=== PATIENT | female | born 1985 | race Caucasian/White ===

== ENCOUNTER 2020-12-02 15:45 | Emergency (ER) | payer MEDICAID ==
[~2020-12-02] VITALS: Ht 157.5 cm; Wt 62.1 kg
[2020-12-02 15:55] VITALS: BP 151/91
--- NOTE | 2020-12-02 15:58 | NUR ---
AMBULATED TO BED 1
--- NOTE | 2020-12-02 16:11 | NUR ---
35 Y/O FEMALE COMPLAINS OF RIGHT FLANK PAIN X 2 WEEKS. PT VERBALIZED FLANK PAIN 6/10, LOCAL, INTERMITTENT, DULL, ACCOMPANIED BY CHILLS, YELLOW VAGINAL DISCHARGE WITH FOUL ODOR, FREQUENT URINATION, AND SORE THROAT. DENIES PRESENCE OF BLOOD IN URINE, DISCOMFORT WHEN VOIDING. PT ALSO VERBALIZED ABDOMINAL PAIN X 2 WEEKS; 6/10, INTERMITTENT, PRESSURE, LOCAL. VERBALIZED GIVING X 3 MO AGO VIA AND PAIN ORIGINATING FROM SURGERY SITE. DENIES NAUSEA/VOMITING/DIARRHEA. NORMOACTIVE BOWEL SOUNDS HEARD THROUGHOUT. AO4, BREATHING EVEN AND UNLABORED, SKIN WARM AND DRY. BED IN LOWEST POSITION, LOCKED, X1 SIDERAIL UP. PMH - ANEMIA NKA
[2020-12-02] MEDS ORDERED: OMEP40EC24 PO (17:00)
[2020-12-02] MEDS ORDERED: FLUC150T PO (17:00)
[2020-12-02] MEDS ORDERED: IBUP-2213 PO (17:00)
[2020-12-02 18:24] VITALS: BP 151/91
--- NOTE | 2020-12-02 18:25 | NUR ---
Patient discharged with v/s stable. Written and verbal after care instructions ABOUT PHARYNGITIS, GERD, AND VAGINITIS given and explained. Patient alert, oriented and verbalized understanding of instructions. Ambulatory with steady gait. All questions addressed prior to discharge. ID band removed. Patient advised to follow up with PMD. Rx of FLUCONAZOLE, IBUPROFEN, AND OMEPRAZOLE given. Patient educated on indication of medication including possible reaction and side effects. Opportunity to ask questions provided and answered.
== END 2020-12-02 18:25 | disposition home or self-care (01) ==
LOC: MED 15:45
DX: N93.9 Abnormal uterine and vaginal bleeding, unspecified (principal); J02.9 Acute pharyngitis, unspecified; Z90.49 Acquired absence of other specified parts of digestive tract
CPT/HCPCS: 81002; 81025; 99283

== ENCOUNTER 2021-02-05 11:05 | Emergency (ER) | payer MEDICAID, SELFPAY ==
[~2021-02-05] VITALS: Ht 152.4 cm; Wt 60.3 kg
[~2021-02-05 11:05] MED LIST: FLUC150T PO; IBUP-2213 PO; OMEP40EC24 PO
[2021-02-05 11:09] VITALS: BP 133/95
--- NOTE | 2021-02-05 11:18 | NUR ---
Patient ambulated to bed 2 with a steady gait.
--- NOTE | 2021-02-05 11:19 | NUR ---
Patient ambulated to restroom with a steady gait to collect urine specimen.
[2021-02-05] MEDS ORDERED: NACL 0.9% 1,000 ML IV ONE (11:25)
[2021-02-05] MEDS ORDERED: KETOROLAC 30 MG/ML VIAL IVP ONE (11:25)
--- NOTE | 2021-02-05 11:32 | NUR ---
35 Y/O FEMALE C/O COUGH, SOB, RUNNING NOSE, SORE THROAT, BODY ACHES, SUBJECTIVE FEVER, CHILLS, [place], AND LOSS OF SMELL/TASTE X3 DAYS. SPO2 100%. PT WAS HOSPITALIZED 10/17 FOR COVID, WAS 7 MONTHS . PT RATES PAIN 10/10 AND TOOK IBUPROFEN BEFORE COMING IN. PMH:SANJANA GOODEN
--- NOTE | 2021-02-05 11:38 | NUR ---
Novel covid swab collected, walked to lab and handed to CPT. Jessika
[2021-02-05] MEDS ORDERED: PRED20TA5 PO (12:09)
[2021-02-05] MEDS ORDERED: IBUP-2213 PO (12:09)
[2021-02-05 12:18] VITALS: BP 133/95
--- NOTE | 2021-02-05 12:18 | NUR ---
Patient discharged with v/s stable. Written and verbal after care instructions given and explained. Patient alert, oriented and verbalized understanding of instructions. Ambulatory with steady gait. All questions addressed prior to discharge. ID band removed. Patient advised to follow up with PMD. Rx of PREDNISONE, IBUPROFEN given. Patient educated on indication of medication including possible reaction and side effects. Opportunity to ask questions provided and answered.
--- NOTE | 2021-02-06 23:47 | NUR ---
LATE ENTRY- NORMAL SALINE 0.9% DISCONTINUED AT 1310
== END 2021-02-05 12:18 | disposition home or self-care (01) ==
LOC: MED 11:05
DX: J06.9 Acute upper respiratory infection, unspecified (principal); Z20.822 Contact with and (suspected) exposure to COVID-19; Z90.49 Acquired absence of other specified parts of digestive tract; Z98.890 Other specified postprocedural states; Z79.899 Other long term (current) drug therapy
CPT/HCPCS: 81002; 81025; 96361; 96374; 99284; J1885; J7030; U0003

== ENCOUNTER 2021-04-01 12:38 | Emergency (ER) | payer MEDICAID, SELFPAY ==
[~2021-04-01] VITALS: Ht 152.4 cm; Wt 63.0 kg
[~2021-04-01 12:38] MED LIST changes: +PRED20TA5 PO
[2021-04-01 12:55] VITALS: BP 127/77
--- NOTE | 2021-04-01 13:49 | NUR ---
PT AMBULATED TO BED 9
--- NOTE | 2021-04-01 13:50 | NUR ---
Patient to restroom for urine sample.
--- NOTE | 2021-04-01 13:55 | NUR ---
35 y/o F BIB self from home with c/c abdominal pain and bloating, constipation x 3 days. Patient reports last bowel movement 3 days ago; denies fever/chills, nausea, vomiting, chest pain, dizziness, back pain. Patient states she took Ibuprofen yesterday with minor relief. Pt placed into a gown, urine sample collected. VSS; respirations even/unlabored. Bed locked in lowest position, side rails x 1, call light in reach. PMH: CSESTION- JUL 2020, CHOLECYSTECTOMY MEDS: NONE NKA
--- NOTE | 2021-04-01 13:57 | NUR ---
Patient back onto bed 09 with steady/even gait.
--- NOTE | 2021-04-01 14:00 | NUR ---
DR MORA AT BEDSIDE EVALUATING PT
[2021-04-01] MEDS ORDERED: MAGN1.7529 PO (14:23)
[2021-04-01] MEDS ORDERED: KETOROLAC 30 MG/ML VIAL ONE (14:28)
[2021-04-01] MEDS ORDERED: KETOROLAC 30 MG/ML VIAL IM ONE (14:30)
[2021-04-01 14:31] VITALS: BP 127/77
--- NOTE | 2021-04-01 14:31 | NUR ---
Patient discharged with v/s stable. Written and verbal after care instructions given and explained. Patient alert, oriented and verbalized understanding of instructions. Ambulatory with steady gait. All questions addressed prior to discharge. ID band removed. Patient advised to follow up with PMD. Rx of Magnesium Citrate given. Patient educated on indication of medication including possible reaction and side effects. Opportunity to ask questions provided and answered.
--- NOTE | 2021-04-01 14:33 | NUR ---
Patient states positive relief after Toradol IM shot; reports pain 5/10. Advised to monitor for 5 minutse before discharged home.
--- NOTE | 2021-04-01 14:38 | NUR ---
Patient states pain 0/10 at this time.
== END 2021-04-01 14:31 | disposition home or self-care (01) ==
LOC: MED 12:38
DX: K59.00 Constipation, unspecified (principal); Z79.899 Other long term (current) drug therapy
CPT/HCPCS: 81002; 81025; 96372; 99283; J1885

== ENCOUNTER 2021-06-20 07:31 | Emergency (ER) | payer MEDICAID ==
[~2021-06-20] VITALS: Ht 152.4 cm; Wt 61.2 kg
[~2021-06-20 07:31] MED LIST changes: +MAGN1.7529 PO
[2021-06-20 07:33] VITALS: BP 134/104
--- NOTE | 2021-06-20 07:37 | NUR ---
PT AMBULATED TO ER BED 12.
--- NOTE | 2021-06-20 07:45 | NUR ---
35 Y/O F BIB SELF FROM HOME, PATIENT PRESENTS TO ED WITH ABD PAIN THAT RADIATES TO L LOWER BACK AND VAGINAL PAIN. PT STATES PAIN STARTED LAST NIGHT WITH YELLOW DISCHARGE, NO BLEEDING. UPON ASSESSMENT, CVA TENDERNESS ON R SIDE, NONE L SIDE. DENIES N/V/D; SKIN IS PINK/WARM/DRY; AAOX4 WITH EVEN AND STEADY GAIT; LUNGS CLEAR BL; HR EVEN AND REGULAR; PT DENIES ANY FEVER, CP, SOB, OR COUGH AT THIS TIME; PATIENT STATES PAIN OF 8/10 AT THIS TIME; VSS; PATIENT POSITIONED FOR COMFORT; HOB ELEVATED; BEDRAILS UP X2; BED DOWN. ER MD MADE AWARE OF PT STATUS. PMH: DENIES NKA MED: DENIES
--- NOTE | 2021-06-20 08:16 | NUR ---
PT TAKEN TO CT VIA W/C.
--- NOTE | 2021-06-20 08:23 | NUR ---
PT TAKEN TO ER BED 12 VIA W/C.
[2021-06-20 08:41] LABS: APPEARANCE,URINE HAZY (CLEAR); BILIRUBIN,URINE NEGATIVE (NEGATIVE); BLOOD, URINE NEGATIVE (NEGATIVE); COLOR,URINE YELLOW (YELLOW); LEUKOCYTE ESTERASE ,URINE NEGATIVE (NEGATIVE); NITRITE, URINE NEGATIVE (NEGATIVE); PH,URINE 5.5 (5.0-9.0); UGLUCOSE NEGATIVE (NEGATIVE)
[2021-06-20] MEDS ORDERED: cefTRIAXone 500 MG in LIDOCAINE MPF 1% 1 ML IM ONE (08:45)
[2021-06-20] MEDS ORDERED: AZITHROMYCIN 250 MG TAB PO ONE (08:45)
[2021-06-20 08:48] LABS: BASOPHILS % (AUTO) 0.5 % (0.0-2.0); EOSINOPHILS # (AUTO) 0.2 K/uL (0-0.4); EOSINOPHILS % (AUTO) 2.4 % (0.0-4.0); HEMATOCRIT 36.1 % (36-48); HEMOGLOBIN 12.3 g/dL (12.0-16.0); LYMPHOCYTES # (AUTO) 2.2 K/uL (2.5-16.5); LYMPHOCYTES % (AUTO) 32.2 % (20.5-51.1); MEAN CORPUSCULAR HEMOGLOBIN 31 pg (27-31); MEAN CORPUSCULAR HGB CONC 34 g/dL (33-37); MEAN CORPUSCULAR VOLUME 89.7 fL (80-94); MONOCYTES # (AUTO) 0.5 K/uL (0.8-1.0); MONOCYTES % (AUTO) 7.9 % (1.7-9.3); NEUTROPHILS # (AUTO) 3.9 K/uL (1.8-7.7); PLATELET COUNT (AUTO) 335 K/uL (140-450); RED BLOOD CELL COUNT(AUTO) 4.02 MIL/uL (4.20-5.40); RED CELL DISTRIBUTION WIDTH 13.3 % (11.6-13.7); WHITE BLOOD COUNT (AUTO) 6.8 K/uL (4.8-10.8)
[2021-06-20 08:48] LABS: ALBUMIN 3.9 g/dL (3.4-5.0); ANION GAP 12.8 (8-16); CARBON DIOXIDE 25.9 mmol/L (21-32); CREATININE 0.6 mg/dL (0.6-1.3); POTASSIUM 4.7 mmol/L (3.5-5.1); TOTAL BILIRUBIN 0.3 mg/dL (0.0-1.0)
[2021-06-20] MEDS ORDERED: FLUCONAZOLE 100 MG TAB PO ONE (08:50)
[2021-06-20] MEDS ORDERED: LIDOCAINE MPF 1% 5 ML ONE (08:54)
[2021-06-20] MEDS ORDERED: cefTRIAXone 500 MG VIAL ONE (08:54)
[2021-06-20] MEDS ORDERED: CRUSHER, PILL MC ONE (09:03)
[2021-06-20] MEDS ORDERED: DOXY-487 PO (09:30)
[2021-06-20] MEDS ORDERED: FLUC150T PO (09:30)
[2021-06-20 09:50] VITALS: BP 134/104
--- NOTE | 2021-06-20 09:57 | NUR ---
Patient discharged with v/s stable. Written and verbal after care instructions given and explained. Patient alert, oriented and verbalized understanding of instructions. Ambulatory with steady gait. All questions addressed prior to discharge. ID band removed. Patient advised to follow up with PMD. Rx of DOXYCYCLINE HYCLATE, FLUCONAZOLE given. Patient educated on indication of medication including possible reaction and side effects. Opportunity to ask questions provided and answered.
== END 2021-06-20 09:57 | disposition home or self-care (01) ==
LOC: MED 07:31
DX: N73.9 Female pelvic inflammatory disease, unspecified (principal)
CPT/HCPCS: 36415; 74176; 80053; 81003; 81025; 85025; 87491; 96372; 99284; J0696; J2001

== ENCOUNTER 2021-07-10 19:31 | Emergency (ER) | payer MEDICAID ==
[~2021-07-10] VITALS: Ht 154.9 cm; Wt 62.6 kg
[~2021-07-10 19:31] MED LIST changes: +DOXY-487 PO
[2021-07-10 20:10] VITALS: BP 157/99
[2021-07-10 21:36] LABS: BASOPHILS % (AUTO) 0.7 % (0.0-2.0); EOSINOPHILS # (AUTO) 0.2 K/uL (0-0.4); EOSINOPHILS % (AUTO) 2.5 % (0.0-4.0); HEMATOCRIT 38.9 % (36-48); LYMPHOCYTES # (AUTO) 2.9 K/uL (2.5-16.5); LYMPHOCYTES % (AUTO) 43.5 % (20.5-51.1); MEAN CORPUSCULAR HEMOGLOBIN 30 pg (27-31); MEAN CORPUSCULAR HGB CONC 33 g/dL (33-37); MEAN CORPUSCULAR VOLUME 88.7 fL (80-94); MONOCYTES # (AUTO) 0.5 K/uL (0.8-1.0); MONOCYTES % (AUTO) 7.5 % (1.7-9.3); NEUTROPHILS % (AUTO) 45.8 % (42.2-75.2); PLATELET COUNT (AUTO) 360 K/uL (140-450); RED BLOOD CELL COUNT(AUTO) 4.39 MIL/uL (4.20-5.40); RED CELL DISTRIBUTION WIDTH 13.4 % (11.6-13.7); WHITE BLOOD COUNT (AUTO) 6.7 K/uL (4.8-10.8)
[2021-07-10 22:05] LABS: ALBUMIN 4.2 g/dL (3.4-5.0); ANION GAP 14.1 (8-16); CARBON DIOXIDE 27.6 mmol/L (21-32); CREATININE 0.7 mg/dL (0.6-1.3); POTASSIUM 3.7 mmol/L (3.5-5.1); TOTAL BILIRUBIN 0.3 mg/dL (0.0-1.0)
[2021-07-10] MEDS ORDERED: ONDANSETRON 4 MG ODT PO ONE (22:10)
[2021-07-10] MEDS ORDERED: ONDANSETRON 4 MG ODT ONE (23:39)
--- NOTE | 2021-07-11 01:12 | NUR ---
PT AMBULATED TO BED 1
--- NOTE | 2021-07-11 01:15 | NUR ---
RECEIVED PT IN BED 1 WITH C/O N/V/D X 2 DAYS. PATIENT STATES RECENT SWLLING OF BILATERAL FEET NOTED TODAY. NO EDEMA NOTED ON BILATERAL FEET. AMBULATES WITH STEADY GAIT
--- NOTE | 2021-07-11 01:30 | NUR ---
PELVIC EXAM DONE. 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
[2021-07-11 02:00] VITALS: BP 146/84
[2021-07-11] MEDS ORDERED: cefTRIAXone 500 MG in LIDOCAINE MPF 1% 1 ML IM ONE (02:20)
[2021-07-11] MEDS ORDERED: METR500T1 PO (02:21)
[2021-07-11] MEDS ORDERED: DOXY-487 PO (02:21)
--- NOTE | 2021-07-11 02:30 | NUR ---
Patient discharged with v/s stable. Written and verbal after care instructions given and explained. Patient alert, oriented and verbalized understanding of instructions. Ambulatory with steady gait. All questions addressed prior to discharge. ID band removed. Patient advised to follow up with PMD. Rx of FLAGYL given. Patient educated on indication of medication including possible reaction and side effects. Opportunity to ask questions provided and answered.
== END 2021-07-11 02:30 | disposition home or self-care (01) ==
LOC: MED 19:31
DX: N73.9 Female pelvic inflammatory disease, unspecified (principal); N76.0 Acute vaginitis; B96.89 Other specified bacterial agents as the cause of diseases classified elsewhere; Z90.49 Acquired absence of other specified parts of digestive tract; Z79.899 Other long term (current) drug therapy
CPT/HCPCS: 36415; 76856; 80053; 81002; 81025; 83690; 85025; 87210; 93976; 99284; Q0162; 87491

== ENCOUNTER 2021-10-09 13:31 | Emergency (ER) | payer MEDICAID ==
[~2021-10-09] VITALS: Ht 152.4 cm; Wt 66.2 kg
[~2021-10-09 13:31] MED LIST changes: +METR500T1 PO
[2021-10-09 13:47] VITALS: BP 150/112
[2021-10-09 15:02] LABS: BASOPHILS % (AUTO) 0.5 % (0.0-2.0); EOSINOPHILS # (AUTO) 0.3 K/uL (0-0.4); EOSINOPHILS % (AUTO) 4.1 % (0.0-4.0); HEMATOCRIT 35.4 % (36-48); HEMOGLOBIN 11.9 g/dL (12.0-16.0); LYMPHOCYTES # (AUTO) 2.9 K/uL (2.5-16.5); LYMPHOCYTES % (AUTO) 42.5 % (20.5-51.1); MEAN CORPUSCULAR HEMOGLOBIN 29 pg (27-31); MEAN CORPUSCULAR HGB CONC 34 g/dL (33-37); MEAN CORPUSCULAR VOLUME 86.2 fL (80-94); MONOCYTES # (AUTO) 0.4 K/uL (0.8-1.0); MONOCYTES % (AUTO) 6.6 % (1.7-9.3); NEUTROPHILS # (AUTO) 3.1 K/uL (1.8-7.7); NEUTROPHILS % (AUTO) 46.3 % (42.2-75.2); PLATELET COUNT (AUTO) 402 K/uL (140-450); RED BLOOD CELL COUNT(AUTO) 4.11 MIL/uL (4.20-5.40); RED CELL DISTRIBUTION WIDTH 12.9 % (11.6-13.7); WHITE BLOOD COUNT (AUTO) 6.8 K/uL (4.8-10.8)
[2021-10-09 15:50] LABS: ALBUMIN 3.8 g/dL (3.4-5.0); ANION GAP 9.2 (8-16); CARBON DIOXIDE 28.6 mmol/L (21-32); CREATININE 0.5 mg/dL (0.6-1.3); POTASSIUM 3.8 mmol/L (3.5-5.1); TOTAL BILIRUBIN 0.3 mg/dL (0.0-1.0)
[2021-10-09 16:48] VITALS: BP 149/88
--- NOTE | 2021-10-09 16:49 | NUR ---
Patient discharged with v/s stable. Written and verbal after care instructions given and explained. Patient verbalized understanding. Ambulatory with steady gait. All questions addressed prior to discharge. Advised to follow up with PMD.
== END 2021-10-09 16:49 | disposition home or self-care (01) ==
LOC: MED 13:31
DX: R60.9 Edema, unspecified (principal); Z79.899 Other long term (current) drug therapy
CPT/HCPCS: 36415; 80053; 83880; 84443; 85025; 99283

== ENCOUNTER 2022-03-03 19:18 | Emergency (ER) | payer MEDICAID, OTHER ==
[~2022-03-03] VITALS: Ht 152.4 cm; Wt 66.9 kg
[~2022-03-03 19:18] MED LIST changes: -MAGN1.7529 PO; +MAGN296S2 PO
[2022-03-03 19:35] VITALS: BP 134/99
--- NOTE | 2022-03-03 19:38 | NUR ---
TO LOBBY A/W BED AMBULATORY
[2022-03-03 21:05] LABS: APPEARANCE,URINE CLEAR (CLEAR); BILIRUBIN,URINE NEGATIVE (NEGATIVE); BLOOD, URINE NEGATIVE (NEGATIVE); COLOR,URINE YELLOW (YELLOW); LEUKOCYTE ESTERASE ,URINE NEGATIVE (NEGATIVE); NITRITE, URINE NEGATIVE (NEGATIVE); PH,URINE 5.5 (5.0-9.0); UGLUCOSE NEGATIVE (NEGATIVE)
--- NOTE | 2022-03-03 21:56 | NUR ---
Patient ambulated to bed 9 and change to a gown.
--- NOTE | 2022-03-03 22:00 | NUR ---
Patient BIB by family from home. C/O abdominal pain x 2 days. Patient reported, had lower abdominal pain with constipation, no N/V/D for 2 days, and vaginal discharge. LMP February 23, 2022.
--- NOTE | 2022-03-03 22:28 | NUR ---
Dr. Jaime examining patient.
--- NOTE | 2022-03-03 22:30 | NUR ---
Pelvic exam performed by Dr. Jaime with ANDREW Delgado at bedside for entire examination. Patient tolerated procedure fair. Patient assisted to position of comfort after examination. Wet mount and Gram statin swabs collected by Dr. Jaime and sent to lab.
[2022-03-03] MEDS ORDERED: KETOROLAC 60 MG/2 ML VIAL IM ONE ×2 (22:35→22:38)
[2022-03-03] MEDS ORDERED: ACET-8386 PO (23:21)
[2022-03-03] MEDS ORDERED: IBUP-2213 PO (23:21)
[2022-03-03] MEDS ORDERED: METR-435 PO (23:21)
[2022-03-03 23:32] VITALS: BP 128/78
--- NOTE | 2022-03-03 23:32 | NUR ---
Patient discharged with v/s stable. Written and verbal after care instructions given and explained. Patient alert, oriented and verbalized understanding of instructions. Ambulatory with steady gait. All questions addressed prior to discharge. ID band removed. Patient advised to follow up with PMD. Rx of Hydrocodon-Acetaminophen, Ibuprofen and Metronidazole given. Patient educated on indication of medication including possible reaction and side effects. Opportunity to ask questions provided and answered.
== END 2022-03-03 23:32 | disposition home or self-care (01) ==
LOC: MED 19:18
DX: N76.0 Acute vaginitis (principal); B96.89 Other specified bacterial agents as the cause of diseases classified elsewhere; Z90.49 Acquired absence of other specified parts of digestive tract; Z98.890 Other specified postprocedural states; Z79.899 Other long term (current) drug therapy
CPT/HCPCS: 81003; 81025; 87205; 87210; 96372; 99283; J1885